=== PATIENT | male | born 1970 | race Caucasian/White ===

== ENCOUNTER 2019-04-27 14:09 | Emergency (ER) | payer OTHER ==
[~2019-04-27] VITALS: Ht 175.3 cm; Wt 90.3 kg
[2019-04-27] MEDS ORDERED: MORPHINE SULFATE INJ 2 MG/ML DISP.SYRIN IV ONE ×2 (14:30→16:00)
[2019-04-27] MEDS ORDERED: ONDANSETRON HCL/PF 4 MG/2 ML VIAL IVP ONE (14:30)
[2019-04-27] MEDS ORDERED: PANTOPRAZOLE 40 MG VIAL IV ONE (14:30)
[2019-04-27] MEDS ORDERED: IV NS 0.9% 1,000 ML BAG IV ONE (14:30)
[2019-04-27] MEDS ORDERED: PANTOPRAZOLE 40 MG VIAL ONE (14:35)
[2019-04-27] MEDS ORDERED: ONDANSETRON HCL/PF 4 MG/2 ML VIAL ONE (14:35)
[2019-04-27] MEDS ORDERED: MORPHINE SULFATE INJ 4 MG/ML DISP.SYRIN ONE ×2 (14:35→16:21)
[2019-04-27 14:40] LABS: BASOPHILS # (AUTO) 0.1 /CMM (0.0-0.2); BASOPHILS % (AUTO) 0.9 % (0.0-2.0); HEMATOCRIT 41 % (39-51); HEMOGLOBIN 14.2 g/dL (13.5-17.5); LYMPHOCYTES # (AUTO) 3.9 /CMM (0.8-4.8); LYMPHOCYTES % (AUTO) 32.1 % (20.0-44.0); MEAN CORPUSCULAR HGB CONC 34 g/dl (31.0-36.0); MEAN CORPUSCULAR VOLUME 94 fL (80-96); MONOCYTES % (AUTO) 8.1 % (2.0-12.0); NEUTROPHILS % (AUTO) 56.9 % (43.0-81.0); PLATELET COUNT (AUTO) 396 /CMM (150-450); WHITE BLOOD COUNT (AUTO) 12.3 K/uL (4.3-11.0)
[2019-04-27 14:42] LABS: CALCIUM, SERUM 9.5 mg/dL (8.5-10.1); CREATININE 0.8 mg/dL (0.6-1.3); POTASSIUM 3.7 mmol/L (3.5-5.1)
[2019-04-27 14:47] LABS: ALBUMIN 3.7 g/dL (3.4-5.0); BILIRUBIN,DIRECT 0.1 mg/dL (0.0-0.2); BILIRUBIN,TOTAL 0.4 mg/dL (0.2-1.0); TOTAL PROTEIN, SERUM 7.5 g/dL (6.4-8.2)
--- NOTE | 2019-04-27 14:47 | NUR ---
Patient came in to the ER c/o diffuse abdominal pain. On room air, breathing evenly and unlabored. Connected to the monitor and pulse ox. kept comfortable, will continue to monitor accordingly.
[2019-04-27 15:58] LABS: BILIRUBIN,URINE SMALL (NEGATIVE); BLOOD, URINE Moderate Ery/uL (NEGATIVE); KETONES,URINE 40 (NEGATIVE); LEUKOCYTE ESTERASE ,URINE Negative (NEGATIVE); NITRITE, URINE Negative (NEGATIVE); PROTEIN,URINE Trace mg/dl (NEGATIVE); UGLUCOSE Negative (NEGATIVE)
[2019-04-27 16:00] LABS: APPEARANCE,URINE HAZY (CLEAR); COLOR,URINE DARK YELLOW (YELLOW)
[2019-04-27 16:16] LABS: BACTERIA,URINE Few /HPF (None Seen); MUCUS,URINE Many /LPF (None Seen); SQUAMOUS EPITHELIAL CELL,UR Few /HPF (None Seen)
[2019-04-27 16:17] LABS: CALCIUM OXALATE CRYSTALS,UR Few /HPF (None Seen)
--- NOTE | 2019-04-27 16:47 | NUR ---
DR CESPEDES SPEAKING WITH DR AUGUST
[2019-04-27 18:40] VITALS: BP 140/92
--- NOTE | 2019-04-27 18:48 | NUR ---
PT ACCEPTED TO [facility] BY . DR CESPEDES HAS SPOKEN TO ACCEPTING PHYSICIAN. FOLLOWING UP W CASE MANAGEMENT RE TRANSFER DETAILS
== END 2019-04-27 20:11 | disposition short-term general hospital (02) ==
LOC: ER 14:15
DX: I85.00 Esophageal varices without bleeding (principal); Z98.890 Other specified postprocedural states
CPT/HCPCS: 36415; 71045; 74176; 80048; 80076; 81001; 83690; 84484; 85025; 87081; 93005 ×2; 96374; 96375; 96376; 99285; C9113; J2270 ×2; J2405; J7030; 81000-TC